=== PATIENT | male | born 2005 | race African-American/Black ===

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

== ENCOUNTER 2025-03-07 13:31 | Emergency (ER) | payer OTHER, BC, SELFPAY ==
--- NOTE | ~2025-03-07 | CT_ITS ---
CT abd pelvis lumbar w con Ordering provider: Dylan Sebastian MD History: 19 years Male with . lower AP, PAIN AFTER HEAVY LIFTING RADIATES TO GROIN . Comparison: None. Technique: CT abdomen and pelvis with IV and without oral contrast. Automated exposure control and it erative reconstruction technique were employed. The dose-length product was 178.97 mGy-cm. 100 MLO Om nipaque 350 was given IV. Findings: VISUALIZED LOWER CHEST: Normal. UPPER ABDOMINAL ORGANS: Liver: Normal. Gallbladder: Normal. Spleen: Normal. Stomach/duodenum: Normal. Pancreas: Normal. Adrenals: Normal. Kidneys: Normal. PELVIC ORGANS: The bladder is underfilled with thickened wall. BOWEL AND MESENTERY: Colon: No evidence of diverticulitis. The appendix is not demonstrated. Small Bowel: Normal. No obstruction. Peritoneum/mesentery: No free air or free fluid. No mesenteric lymphadenopathy. RETROPERITONEUM: Normal aorta. No retroperitoneal lymphadenopathy. MUSCULOSKELETAL: Superficial soft tissues: The superficial soft tissues are normal. Bones: Normal. IMPRESSION: 1. No evidence of appendicitis, diverticulitis or intestinal obstruction. CT abd pelvis lumbar w con Ordering provider: Dylan Sebastian MD History: 19 years Male with . lower AP, PAIN AFTER HEAVY LIFTING RADIATES TO GROIN . Comparison: None. Technique: CT lumbar spine without contrast. Automated exposure control and iterative reconstruction technique were employed. The dose-length product was 178.97 mGy-cm. FINDINGS: VERTEBRAE: Normal height and alignment. No subluxation or visible acute fracture. DISC SPACES: Slight narrowing of the disc L4-L5. T12-L1: No stenosis. L1-L2: No stenosis. L2-L3: No stenosis. L3-L4: No stenosis. L4-L5: No stenosis. Mild diffuse disc bulge. L5-S1: No stenosis. Mild diffuse disc bulge. PARASPINOUS SOFT TISSUES: Mild atheromatous disease of the abdominal aorta. IMPRESSION: No acute osseous abnormalities. Mild disc bulge at the level of L4-L5 and L5-S1. Reviewed, dictated and finalized at location A. IMPRESSION: 1. No evidence of appendicitis, diverticulitis or intestinal obstruction. CT abd pelvis lumbar w con Ordering provider: Dylan Sebastian MD History: 19 years Male with . lower AP, PAIN AFTER HEAVY LIFTING RADIATES TO GR OIN . Comparison: None. Technique: CT lumbar spine without contrast. Automated exposure control and it erative reconstruction technique were employed. The dose-length product was 178 .97 mGy-cm. FINDINGS: VERTEBRAE: Normal height and alignment. No subluxation or visible acute fractur e. DISC SPACES: Slight narrowing of the disc L4-L5. T12-L1: No stenosis. L1-L2: No stenosis. L2-L3: No stenosis. L3-L4: No stenosis. L4-L5: No stenosis. Mild diffuse disc bulge. L5-S1: No stenosis. Mild diffuse disc bulge. PARASPINOUS SOFT TISSUES: Mild atheromatous disease of the abdominal aorta.
[2025-03-07 13:39] VITALS: BP 122/74; PULSE 80; RESP 16; TEMP 36.8; O2SAT 100
--- OUTSIDE RECORDS SUMMARY | 2025-03-07 13:45 | XMS_ITS | Clinical Summary ---
Author Organization [facility] Address [address] [place] [address] Care Team Providers Care Envelope Sealing Machine Operator Name Role Phone Maurizio Ramirez MD Primary Care Provider [phone] Source Comments [facility] [employer],non-owned Affiliates and Associated Physician Practices is amultiple site organization consisting of ambulatory clinics and hospital sitesin [place], [place], [place] and [place]. This disclosure is being madepursuant to the Care Everywhere program and may not contain all information available regarding this patient. Last updated 18.[facility] [employer] Allergies No known active allergies Medications * Be aware that medications may not be up to date on this document. Alwaysverify current medications with the patient. polyethylene glycol 3350 (MIRALAX) powderIndicati ons:Constipati on Take 17 g by mouth 4 times daily Reasons: Constipation 850 g 4 9 Active acetaminophen (TYLENOL) 325 MG tablet Take 2 tablets by mouth every 4 hours as needed Maximum allowable Acetaminophen amount = 4 Grams (4000 mg) / 24 hours. 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 Stool test at PCP [...] 9 Assessment & Plan (07/06/2019 11:20 AM NEONATAL NURSE): Assessment: Louis Boss is a previously healthy 13 year old [...] in stool, possible irritation in response to suppository/oajae-gjrkz-sio. Obstruction and active bleeding unlikely given normal [...] pain Assessment & Plan (07/05/2019 4:57 AM NEONATAL NURSE): Assessment: Louis Boss is a previously healthy 13 year old [...] bite of left lower leg 03/18/2016 Immunizations Immunization Administration Dates Next Due INFLUENZA VACCINE, QUADR. [...] Recorded Sex Assigned at Not on file Legal Sex Male 5:45 AM NEONATAL NURSE Gender Identity Not on file Sexual Orientation Not on file Last Filed Vital Signs Vital Sign Reading Time Taken Comments Blood Pressure 124/78 11/09/2019 9:20 AM CDT Pulse 62 10/05/2019 8:46 AM NEONATAL NURSE Temperature 36.8 C (98.2 F) 10/05/2019 8:46 AM NEONATAL NURSE Respiratory Rate 18 10/05/2019 8:46 AM NEONATAL NURSE Oxygen Saturation 100% 09/29/2019 10: 45 AM NEONATAL NURSE Inhaled Oxygen Concentration - - Weight 50.8 kg (111 lb 15.9 oz) 11/09/2019 9:20 AM CDT Height 163.7 cm (5' 4.45) 11/09/2019 9:20 AM CD T Body Mass Index 18.96 11/09/2019 9:20 AM CDT Body Mass Index Percentile 45.85% 11/09/2019 9:2 0 AM CDT Growth Chart: CDC (Boys, 2-2 0 Years) Plan of Treatment Health Maintenance Due Date Last Done Comments HIV SCREENING 2020 HPV VACCINE (1 - Male 3-dose series) 2020 MENINGOCOCCAL (Group B) VACC INE SHARED DECISION-MAKING (1 of 2 - Standard) 2021 HEPATITIS C SCREENING 09/15/2023 COVID-19 VACCINE (1 - 2023-2 5 season) 2024 DEPRESSION SCREENING 08/30/2024 DTAP/TDAP/TD VACCINES (1 - Tdap) 2024 HEPATITIS B VACCINE (1 of 3 - 19+ 3-dose series) 2024 INFLUENZA VACCINE (#1) 2025 07/06/2019 ZOSTER VACCINE (1 of 2) 2055 HIB VACCINE Aged Out No longer eligi ble based on patient's age to complete this topic MENINGOCOCCAL GROUPS A/C/Y/W VACCINE Aged Out No longer eligible b ased on patient's age to complete this topic PNEUMOCOCCAL VACCINE Aged Out No long er eligible based on patient's age to complete this topic Insurance [facility] Advance Directives * Full Code (Latest Code Status on File) Date Activated Date Inactivated Comments 07/15/2019 10:05 PM 07/17/2019 1:52 PM Care Teams Envelope Sealing Machine Operator Relationship Specialty Start Date End Date Maurizio Ramirez MD [address] [facility] [address] [place] [address] PCP - General 06/11/10
--- OUTSIDE RECORDS SUMMARY | 2025-03-07 13:45 | XMS_ITS | Encounter Summary ---
Author Organization [facility] Address [address] [facility] [facility] [place] [address] Care Team Providers Care Buff Wheel Fabricator Name Role Phone Maurizio Ramirez MD Primary Care Provider Encounter Details Date Type Department Care Team (Late st Contact Info) Description 08/02/2019 Telephone [facility] - [address] [place] [address] Shikha Desir, [facility] [address] [place] [address] Social History Tobacco Use Types Packs/Day Years Used Date Smoking Tobacco: Passive Smo ke Exposure - Never Smoker Smokeless Tobacco: Never Alcohol Use Standard Drinks/Week Comments No 0 (1 standard drink = 0.6 oz pur e alcohol) Sex and Gender Information Value Date Recorded Sex Assigned at Not on file Legal Sex Male 5:45 AM KEY OPERATOR Gender Identity Not on file Sexual Orientation Not on file documented as of this encounter Functional Status * Is person deaf or have serious hearing difficulty? Answer Date of Assessment Author No 07/15/2019 9:49 PM Mary Alice Fuentes RN * Is person blind or have serious difficulty seeing? Answer Date of Assessment Author No 07/15/2019 9:49 PM Mary Alice Fuentes RN * Does person have serious difficulty walking/climbing stairs? Answer Date of Assessment Author No 07/15/2019 9:49 PM KEY OPERATOR Mary Alice Browne RN * Does person have difficulty dressing/bathing? Answer Date of Assessment Author No 07/15/2019 9:49 PM KEY OPERATOR Mary Alice Browne RN * Does person have difficulty doing errands alone? Answer Date of Assessment Author No 07/15/2019 9:49 PM Mary Alice Fuentes RN documented as of this encounter Mental Status * Does person have difficulty concentrating/remembering/making decisions? Answer Entry Date Author No 07/15/2019 9:49 PM KEY OPERATOR Mary Alice Browne RN documented in this encounter Miscellaneous Notes * Telephone Encounter - Kiara Sanchez RN - 08/18/2019 1:52 PM KEY OPERATOR Verified orders in epic. Prep letter sent to address provided. OPERATOR * Telephone Encounter - Thania Ha - 08/18/2019 10:34 AM KEY OPERATOR Scheduled EGD/Colon Wednesday09/29/19 at 9:[address] Courtney and Dr. Shipman. Mom would like prep instructions mailed to her at [address] [place] [phone] OPERATOR * Telephone Encounter - Thania Ha - 08/18/2019 9:03 AM CST Left a message to call the office to schedule EGD/Colon. OPERATOR * Telephone Encounter - Thania Ha - 08/18/2019 9:03 AM CST ----- Message from Asuncion Howard RN sent at 08/17/2019 11:59 AM KEY OPERATOR ----- Regarding: [facility], Please schedule this patient for an upper and lower scope in about 1 month, with Dr. Shipman and preferably Dr. David. It can be another attending, if it needs to be. Family prefers a Wednesday for the scopes. No instructions were given to the family. Thanks! Asuncion OPERATOR * Telephone Encounter - Adela Coleman RN - 08/02/2019 10:32 AM CST Spoke with Mom and relayed message. Mom verbalized understanding. Mom would like to know if he can have an earlier appt. OPERATOR * Telephone Encounter - Shikha Desir APRN-CNP - 08/02/2019 10:19 AM KEY OPERATOR I recommend discontinuing the Toradol. Not helpful for GI pain and he has a history of constipationin the past. He could try some Maalox at least 2 hours after taking the Prilosec. If the pain continues, he should follow-up with GI as he has not been seen since 08/2018. OPERATOR * Telephone Encounter - Adela Coleman RN - 08/02/2019 9:28 AM CST Spoke with Mom. She says that since the treatment for crypto, his pain is more severe. Unable to doanything and is lying around. Mom says the pain is at the [...] further recommendations or see the patient earlier. OPERATOR * Telephone Encounter - Thania Ha - 08/02/2019 8:56 AM CST Spoke with mom, she stated that the patient is having pain that rated a 13 out of 10 on the pain scale. OPERATOR documented in this encounter Plan of Treatment Not on file documented as of this encounter Visit Diagnoses Not on filedocumented in this encounter Care Teams Buff Wheel Fabricator Relationship Specialty Start Date End Date Maurizio Ramirez MD [address] [address] PCP - General 06/11/10 documented as of this encounter
[2025-03-07] MEDS: KETOROLAC 30 MG/ML VIAL (*BKC) IV PUSH (14:35)
[2025-03-07 14:40] LABS: Hematocrit 43.8 % (42.0-52.0); Hemoglobin 14.0 g/dL (14.0-18.0); Immature Granulocyte Percent A 0.5 % (0-0.5); Lymphocytes Absolute Auto 1.13 K/mm3 (0.9-3.2); Mean Corpuscular HGB Conc 32.0 g/dl (32-36); Mean Corpuscular Hemoglobin 29.7 pg (26-34); Mean Corpuscular Volume 93.0 fl (80-100); Nucleated Red Blood Cells Absolute Auto 0.000 K/mm3 (0.0-0.012); Nucleated Red Blood Cells Perc 0.0 % (0.0-0.2); Platelet Count Result 194 k/mm3 (150-375); Red Blood Count 4.71 M/mm3 (4.6-6.20); White Blood Count 6.5 K/mm3 (4.5-10.0)
--- OUTSIDE RECORDS SUMMARY | 2025-03-07 14:41 | XMS_ITS | Encounter Summary ---
Author Organization [facility] Address [address] [facility] [place] [address] Care Team Providers Care Trading Floor Operator Name Role Phone Maurizio Ramirez MD Primary Care Provider [phone] Encounter Details Date Type Department Care Team (Late st Contact Info) Description 08/02/[address] [facility] - [address] [place] [address] Shikha Desir, [employer] DEVELOPER-[facility] [address] [place] [address] Social History Tobacco Use Types Packs/Day Years Used Date Smoking Tobacco: Passive Smo ke Exposure - Never Smoker Smokeless Tobacco: Never Alcohol Use Standard Drinks/Week Comments No 0 (1 standard drink = 0.6 oz pur e alcohol) Sex and Gender Information Value Date Recorded Sex Assigned at Not on file Legal Sex Male 5:45 AM SODA JERKER Gender Identity Not on file Sexual Orientation [...] of Assessment Author No 07/15/2019 9:49 PM SODA JERKER Mary Alice Browne RN * Does person have difficulty dressing/bathing? Answer Date of Assessment Author No 07/15/2019 9:49 PM SODA JERKER Mary Alice Browne RN * Does person have difficulty doing errands alone? Answer Date of Assessment Author No 07/15/2019 9:49 PM Mary Alice Fuentes RN documented as of this encounter Mental Status * Does person have difficulty concentrating/remembering/making decisions? Answer Entry Date Author No 07/15/2019 9:49 PM SODA JERKER Mary Alice Browne RN documented in this encounter Miscellaneous Notes * Telephone Encounter - Kiara Sanchez RN - 08/18/2019 1:52 PM SODA JERKER Verified orders in epic. Prep letter sent to address provided. JERKER * Telephone Encounter - Thania Ha - 08/18/2019 10:34 AM SODA JERKER Scheduled EGD/Colon Wednesday09/29/19 at 9:[address] Courtney and Dr. Shipman. Mom would like prep instructions mailed to her at [address] [place] [phone] JERKER * Telephone Encounter - Thania Ha - 08/18/2019 9:03 AM CST Left a message to call the office to schedule EGD/Colon. JERKER * Telephone Encounter - Thania Ha - 08/18/2019 9:03 AM CST ----- Message from Asuncion Howard RN sent at 08/17/2019 11:59 AM SODA JERKER ----- Regarding: Upper and Lower scope scheduling [facility], Please schedule this patient for an upper and lower scope in about 1 month, with Dr. Shipman and preferably Dr. David. It can be another attending, if it needs to be. Family prefers a Wednesday for the scopes. No instructions were given to the family. Thanks! Asuncion JERKER * Telephone Encounter - Adela Coleman RN - 08/02/2019 10:32 AM CST Spoke with Mom and relayed message. Mom verbalized understanding. Mom would like to know if he can have an earlier appt. JERKER * Telephone Encounter - Shikha Desir APRN-CNP - 08/02/2019 10:19 AM SODA JERKER I recommend discontinuing the Toradol. Not helpful for GI pain and he has a history of constipationin the past. He could try some Maalox at least 2 hours after taking the Prilosec. If the pain continues, he should follow-up with GI as he has not been seen since 08/2018. JERKER * Telephone Encounter - Adela Coleman RN [...] further recommendations or see the patient earlier. JERKER * Telephone Encounter - Thania Ha - 08/02/2019 8:56 AM CST Spoke with mom, she stated that the patient is having pain that rated a 13 out of 10 on the pain scale. JERKER documented in this encounter Plan of Treatment Not on file documented as of this encounter Visit Diagnoses Not on filedocumented in this encounter Care Teams Trading Floor Operator Relationship Specialty Start Date End Date Maurizio Ramirez MD [address] [address] PCP - General 06/11/10 documented as of this encounter
--- OUTSIDE RECORDS SUMMARY | 2025-03-07 14:41 | XMS_ITS | Clinical Summary ---
Author Organization [facility] Address [address] [place] [address] Care Team Providers Care Record Press Operator Name Role Phone Maurizio Ramirez MD Primary Care Provider [phone] Source Comments [facility] [employer],non-owned Affiliates and Associated Physician Practices is amultiple site organization consisting of ambulatory clinics and hospital sitesin [place], [place], [place] and [place]. This disclosure is being madepursuant to the Care Everywhere program and may not contain all information available regarding this patient. Last updated 18.[facility] [employer] Allergies No known active allergies Medications * [...] 07/15/2019 Assessment & Plan (07/16/2019 2:14 PM REGIONAL RETAIL SALES MANAGER): Assessment: Louis Boss is a 13 year [...] exams Assessment & Plan (07/16/2019 12:42 AM REGIONAL RETAIL SALES MANAGER): Assessment: Louis Boss is a 13 year old male with no previous PMH that presented with ongoing abdominal pain and diarrhea after hospitalization at [facility] for similar symptoms. Stool test at [...] 9 Assessment & Plan (07/06/2019 11:20 AM REGIONAL RETAIL SALES MANAGER): Assessment: Louis Boss is a previously healthy [...] in stool, possible irritation in response to suppository/[id number]-dqrhz-pzq. Obstruction and active bleeding unlikely given normal [...] pain Assessment & Plan (07/05/2019 4:57 AM REGIONAL RETAIL SALES MANAGER): Assessment: Louis Boss is a previously healthy [...] on file Legal Sex Male 5:45 AM REGIONAL RETAIL SALES MANAGER Gender Identity Not on file Sexual Orientation Not on file Last Filed Vital Signs Vital Sign Reading Time Taken Comments Blood Pressure 124/78 11/09/2019 9:20 AM CDT Pulse 62 10/05/2019 8:46 AM REGIONAL RETAIL SALES MANAGER Temperature 36.8 C (98.2 F) 10/05/2019 8:46 AM REGIONAL RETAIL SALES MANAGER Respiratory Rate 18 10/05/2019 8:46 AM REGIONAL RETAIL SALES MANAGER Oxygen Saturation 100% 09/29/2019 10: 45 AM REGIONAL RETAIL SALES MANAGER Inhaled Oxygen Concentration - - Weight 50.8 [...] patient's age to complete this topic Insurance [facility] Advance Directives * Full Code (Latest Code Status on File) Date Activated Date Inactivated Comments 07/15/2019 10:05 PM 07/17/2019 1:52 PM Care Teams Record Press Operator Relationship Specialty Start Date End Date Maurizio Ramirez MD [address] [facility] [address] [place] [address] PCP - General 06/11/10
[2025-03-07 14:48] LABS: Alanine Aminotransferase 19 U/L (6-50); Albumin Level 4.5 g/dL (3.7-5.6); Alkaline Phosphatase 80 U/L (58-237); Anion Gap 8 mmol/L (4-12); Aspartate Amino Transferase 33 U/L (17-59); Bilirubin,Total 0.7 mg/dL (0.2-1.3); Blood Urea Nitrogen 19 mg/dL (8-21); Calcium 9.6 mg/dL (8.9-10.7); Carbon Dioxide 26 mmol/L (22-30); Chloride 105 mmol/L (98-107); Estimated CRCL calculation 90 ml/min; Estimated Glomerular Filt Rate > 60; Glucose 95 mg/dL (65-110); Lipase 65 U/L (23-300); Potassium 3.8 mmol/L (3.4-5.0); Sodium 139 mmol/L (134-143); Total Protein 7.7 g/dL (6.3-8.6)
[2025-03-07 14:52] LABS: Add Urine Microscopic? YES; Appearance Urine Clear (Clear); Glucose Urine UA Negative (Negative); Leukocyte Esterase Ur Negative LEU/UL (Negative); Nitrate Urine Negative (Negative); Non Pathogenic Casts 0-2; Specific Grav Ur 1.035 (1.001-1.035)
--- NOTE | 2025-03-07 17:24 | ED_ITS ---
HPI - General Adult General Chief complaint: Abdominal Pain Stated complaint: abd pain after picking up box Time Seen by Provider: 03/07/25 13:58 History of Present Illness HPI narrative: Patient is a 19-year-old male who presents ER with sudden onset back and abdominal pain after picking up a box. Radiates into his lower abdomen and his testicles bilaterally. He is able to urinate. No lower extremity numbness or tingling. No history of previous injury. Patient was lifting 40 lb at work when this occurred. Related Data Allergies Allergy/AdvReac Type Severity Reaction Status Date / Time No Known Allergies Allergy Verified 03/07/25 13:42 Review of Systems 2 Review of Systems: All systems reviewed & are unremarkable except as noted in HPI and below Constitutional: Constitutional: Reports no additional constitutional complaints Musculoskeletal: Musculoskeletal: Reports no additional musculoskeletal complaints Integumentary/Breasts: Skin/Breast: Reports system reviewed and no additional complaints, except as docu Neurologic: Reports system reviewed and no additional complaints, except as documented [facility] Past Medical History Medical History (Updated 03/07/25 @ 17:28 by Dylan Sebastian MD) Healthy adult male Surgical History Surgical History (Updated 03/07/25 @ 17:28 by Dylan Sebastian MD) No history of previous surgery Exam 2 Narrative: GENERAL: Uncomfortable-appearing, well-nourished, and in no acute distress. HEAD: Normocephalic, atraumatic. ENT: Mucous membranes moist. CHEST: Clear to auscultation. No respiratory distress. HEART: Regular rate and rhythm. Normal peripheral pulses. ABDOMEN: Soft, nontender, nondistended. : Normal external genitalia without tenderness to the testicles or penis. No inguinal hernia noted. Patient has intact sensation of the scrotum and perineum. back: Mild tenderness to the midline low lumbar spine without step-offs. EXTREMITIES: Normal range of motion. No edema. Positive straight leg raise bilaterally. SKIN: Warm, dry, no rash. NEURO: Alert and oriented x3. Course Course Emergency Course: Patient received Toradol for pain and reports resolution of symptoms. Discussed imaging findings as well as lab results. Recommend follow-up with Spine, symptoms may be radiation from injured disc from lifting. No hernia. Discharge. Vital Signs Vital signs: Vital Signs Temperature 98.2 F 03/07/25 13:39 Pulse Rate 80 07/09/25 13:39 Respiratory Rate 16 03/07/25 13:39 Blood Pressure 122/74 03/07/25 13:39 Pulse Oximetry 100 03/07/25 13:39 Temperature 98.2 F 03/07/25 13:39 Pulse Rate 80 03/07/25 13:39 Respiratory Rate 16 03/07/25 13:39 Blood Pressure 122/74 03/07/25 13:39 Pulse Oximetry 100 03/07/25 13:39 Medical Decision Making Vital Signs Vital Signs: Vital Signs Temperature 98.2 F 03/07/25 13:39 Pulse Rate 80 03/07/25 13:39 Respiratory Rate 16 03/07/25 13:39 Blood Pressure 122/74 03/07/25 13:39 Pulse Oximetry 100 03/07/25 13:39 Temperature 98.2 F 03/07/25 13:39 Pulse Rate 80 03/07/25 13:39 Respiratory Rate 16 03/07/25 13:39 Blood Pressure 122/74 03/07/25 13:39 Pulse Oximetry 100 03/07/25 13:39 Lab Data 03/07/25 14:32 03/07/25 14:32 Labs: Lab Results 03/07/25 03/07/25 Range/Units 14:28 14:32 WBC 6.5 (4.5-10.0) K/mm3 RBC 4.71 (4.6-6.20) M/mm3 Hgb 14.0 (14.0-18.0) g/dL Hct 43.8 (42.0-52.0) % MCV 93.0 (80-100) fl MCH 29.7 (26-34) pg MCHC 32.0 (32-36) g/dl RDW 12.1 (11.5-14.5) % Plt Count 194 (150-375) k/mm3 MPV 9.1 (7.4-10.4) fl Immature Gran % (Auto) 0.5 (0-0.5) % Neut % (Auto) 76.3 H (45.5-73.1) % Lymph % (Auto) 17.4 L (18.3-44.2) % Luce % (Auto) 5.1 (2.6-8.5) % Eos % (Auto) 0.5 (0-4.4) % Baso % (Auto) 0.2 (0.2-1.2) % Lymph # (Auto) 1.13 (0.9-3.2) K/mm3 Luce # (Auto) 0.3 (0.1-0.6) K/mm3 Eos # (Auto) 0.0 (0-0.3) K/mm3 Baso # (Auto) 0.0 (0.0-0.1) K/mm3 Abs Immat Gran (auto) 0.03 (0.00-0.031) K/mm3 Absolute Neuts (auto) 5.0 (1.3-6.7) K/mm3 Absolute Nucleated RBC 0.000 (0.0-0.012) K/mm3 Nucleated RBC % 0.0 (0.0-0.2) % Sodium 139 (134-143) mmol/L Potassium 3.8 (3.4-5.0) mmol/L Chloride 105 (98-107) mmol/L Carbon Dioxide 26 (22-30) mmol/L Anion Gap 8 (4-12) mmol/L BUN 19 (8-21) mg/dL Creatinine 0.90 (0.7-1.3) mg/dL Estim Creat Clear Calc 90 ml/min Estimated GFR > 60 (59 - ) Glucose 95 (65-110) mg/dL Calcium 9.6 (8.9-10.7) mg/dL Total Bilirubin 0.7 (0.2-1.3) mg/dL AST 33 (17-59) U/L ALT 19 (6-50) U/L Alkaline Phosphatase 80 (58-237) U/L Total Protein 7.7 (6.3-8.6) g/dL Albumin 4.5 (3.7-5.6) g/dL Lipase 65 (23-300) U/L Urine Color Yellow (Yellow) Urine Appearance Clear (Clear) Urine pH 6.5 (5.0-9.0) Ur Specific Faber 1.035 (1.001-1.035) Urine Protein Trace (Negative) mg/dL Urine Glucose (UA) Negative (Negative) mg/dL Urine Ketones Trace H (Negative) mg/dL Ur Blood (Man) Negative (Negative) Urine Nitrate Negative (Negative) Urine Bilirubin Negative (Negative) Urine Urobilinogen 1.0 (<2.0) mg/dL Leukocyte Esterase Rfl Negative (Negative) HARIS/UL Urine RBC 0-2 (0-2) /hpf Urine WBC 0-5 (0-3) /hpf Ur Squamous Epith Cells None seen (Few) /hpf Urine Bacteria None seen /hpf Urine Casts 0-2 Imaging Data Radiologist's impression: ITS Impressions Miscellaneous CT Procedure 03/07/25 16:03 IMPRESSION: 1. No evidence of appendicitis, diverticulitis or intestinal obstruction. CT abd pelvis lumbar w con Ordering provider: Dylan Sebastian MD History: 19 years Male with . lower AP, PAIN AFTER HEAVY LIFTING RADIATES TO GROIN . Comparison: None. Technique: CT lumbar spine without contrast. Automated exposure control and iterative reconstruction technique were employed. The dose-length product was 178.97 mGy-cm. FINDINGS: VERTEBRAE: Normal height and alignment. No subluxation or visible acute fracture. DISC SPACES: Slight narrowing of the disc L4-L5. T12-L1: No stenosis. L1-L2: No stenosis. L2-L3: No stenosis. L3-L4: No stenosis. L4-L5: No stenosis. Mild diffuse disc bulge. L5-S1: No stenosis. Mild diffuse disc bulge. PARASPINOUS SOFT TISSUES: Mild atheromatous disease of the abdominal aorta. IMPRESSION: No acute osseous abnormalities. Mild disc bulge at the level of L4-L5 and L5-S1. Discharge Plan Discharge Clinical Impression: Bulging lumbar disc, Acute low back pain Patient Disposition: Home Condition: Stable Instructions: Lumbar Disc Herniation (ED), Acute Low Back Pain (ED) Additional Instructions: Please return to the emergency department if you develop severe pain that is not controlled by pain medications or if you are unable to walk because of pain or weakness. Return to the emergency department immediately if you develop fevers, loss of bowel or bladder control (dribbling of urine or having accidents you wouldn't normally have), inability to urinate, numbness of your genital or anal area, or weakness/numbness of your legs or arms as these could all be signs of a serious medical emergency. Do not lift over in 10 lbs until cleared by your primary care doctor or spine surgery. Patient Language: Khmer Prescriptions: New cyclobenzaprine 10 mg tablet 10 mg PO TID PRN (Reason: muscle spasm) Qty: 20 0RF methylprednisolone [Medrol (Serge)] 4 mg tablets,dose pack See Rx Instructions .ROUTE .COMPLEX Qty: 21 0RF Rx Instructions: for 6 days No Action ondansetron 4 mg tablet,disintegrating 4 mg PO Q8H PRN (Reason: nausea and vomiting) Qty: 20 0RF azithromycin 250 mg tablet See Rx Instructions .ROUTE .COMPLEX Qty: 6 0RF Rx Instructions: For 250 mg dose pack: take 500 mg today (day 1), then 250 mg for 4 days (days 2-5) benzonatate 100 mg capsule 100 mg PO TID PRN (Reason: cough) Qty: 14 0RF albuterol sulfate 90 mcg/actuation HFA aerosol inhaler 1 puff inhalation QID Qty: 6.7 0RF amoxicillin-pot clavulanate 875-125 mg tablet 1 tablet PO Q12H 7 Days Qty: 14 0RF cyclobenzaprine 10 mg tablet 10 mg PO TID PRN (Reason: muscle spasm) Qty: 10 0RF lidocaine [Lidoderm] 5 % adhesive patch,medicated 1 patch topical DAILY 5 Days Qty: 10 0RF Rx Instructions: leave on most painful area for up to 12 hrs Follow-up/Referrals: PHYSICIAN,RHIC SYSTEMS SAFETY ENGINEER [Primary Care Provider] - Meredith Reyes MD [Physician] - 1 Week Stand Alone Forms: Work/School Release IP
== END 2025-03-07 17:33 | disposition home or self-care (01) ==
PROVIDERS: Emergency Provider Emergency Medicine
DX: M54.50 Low back pain, unspecified (principal); M51.369 Other intervertebral disc degeneration, lumbar region without mention of lumbar back pain or lower extremity pain
CPT/HCPCS: 36415; 72132; 74177; 80053; 81001; 83690; 85025; 96374; 99284; J1885; Q9967